=== PATIENT | female | born 1970 | race Caucasian/White ===

== ENCOUNTER 2017-03-02 07:10 | Emergency (ER) | payer OTHER ==
[~2017-03-02] VITALS: Ht 165.1 cm; Wt 63.5 kg
[2017-03-02] MEDS ORDERED: LEVO25TA2 PO (07:16)
[2017-03-02 07:59] LABS: *BILIRUBIN,URIN NEGATIVE (NEGATIVE); *BLOOD, URINE 2+ (NEGATIVE); *CLARITY,URINE CLOUDY (CLEAR); *COLOR,URINE YELLOW (YELLOW); *KETONES,URINE NEGATIVE (NEGATIVE); *PROTEIN,URINE 1+ (NEGATIVE); *UROBILINOGEN,URINE 0.2 E.U./dl (NORMAL); LEUKOCYTE ESTERASE ,URINE 3+ (NEGATIVE); NITRITE, URINE POSITIVE (NEGATIVE); UGLUCOSE NEGATIVE (NEGATIVE)
--- NOTE | 2017-03-02 07:59 | NUR ---
PATIENT WAS SEEN BY DR THOMPSON FOR C/O PAIN AND "INFECTION" IN UROGENITAL AREA.
[2017-03-02 08:00] LABS: *URINE HCG, QUAL NEGATIVE (NEGATIVE)
[2017-03-02 08:11] LABS: BACTERIA,URINE FEW /HPF (NONE SEEN)
[2017-03-02 08:12] LABS: RBC,URINE 20-50 /HPF (0-3); SQUAMOUS EPITHELIAL CELL,UR FEW /HPF (NONE SEEN); WBC,URINE TNTC /HPF (0-3)
[2017-03-02 08:25] LABS: BASOPHILS % (AUTO) 0.2 % (0.0-2.0); EOSINOPHILS # (AUTO) 0.2 K/uL (0.0-0.7); EOSINOPHILS % (AUTO) 2.1 % (0.0-7.0); HEMATOCRIT 38.3 % (37-47); HEMOGLOBIN 13.1 G/DL (12.0-16.0); LYMPHOCYTES # (AUTO) 1.4 K/UL (0.8-4.8); LYMPHOCYTES % (AUTO) 15.5 % (20.5-51.5); MEAN CORPUSCULAR HEMOGLOBIN 32.1 UUG (27.0-31.0); MEAN CORPUSCULAR HGB CONC 34 g/dL (32.0-37.0); MEAN CORPUSCULAR VOLUME 94.1 FL (81.0-99.0); MONOCYTES # (AUTO) 0.6 K/UL (0.1-1.30); MONOCYTES % (AUTO) 6.2 % (0.0-11.0); NEUTROPHILS # (AUTO) 6.7 K/UL (1.8-8.9); PLATELET COUNT (AUTO) 200 K/UL (150-450); RED BLOOD CELL COUNT(AUTO) 4.07 MIL/UL (4.2-5.4); WHITE BLOOD COUNT (AUTO) 8.9 K/UL (4.0-11.2)
[2017-03-02 08:34] LABS: CREATININE 0.8 mg/dL (0.6-1.3); POTASSIUM 4.4 mmol/L (3.5-5.1)
[2017-03-02] MEDS ORDERED: AZITHROMYCIN 250 MG TABLET PO ONE (08:45)
[2017-03-02] MEDS ORDERED: CEFTRIAXONE 500 MG VIAL IM ONE (08:45)
[2017-03-02] MEDS ORDERED: AZITHROMYCIN 250 MG TABLET ONE (08:50)
[2017-03-02] MEDS ORDERED: LIDOCAINE HCL 1% 20 ML VIAL ONE (08:51)
[2017-03-02] MEDS ORDERED: CEFTRIAXONE 500 MG VIAL ONE (08:51)
--- NOTE | 2017-03-02 08:55 | NUR ---
PELVIC EXAM DONE BY DR THOMPSON WITH ME AT [facility]. MEDS GIVEN OS ORDERED. DC, RX AND FOLLOW UP INSTRUTIONS GIVEN AND EXPLAINED TO PATIENT WHO STATES SHE UNDERSTANDS ALL INSTRUCTIONS.
[2017-03-06 08:07] LABS: NEISSERIA GONORRHOEAE NAA Negative (Negative)
== END 2017-03-02 08:57 | disposition home or self-care (01) ==
LOC: ER 07:10
DX: N39.0 Urinary tract infection, site not specified (principal); N76.0 Acute vaginitis; E03.9 Hypothyroidism, unspecified; Z79.899 Other long term (current) drug therapy
CPT/HCPCS: 36415; 84703; 85025; 87077; 87081; 87086; 87210; 87491; 87591; A4663; J0696; J3490; Q0144